=== PATIENT | male | born 1960 | race Caucasian/White ===

== ENCOUNTER 2021-12-19 12:18 | Outpatient (REF) | payer OTHER, SELFPAY ==
--- NOTE | ~2021-12-19 | MM_ITS ---
EXAMINATION: MM DIAGNOSTIC DIGITAL BREAST TOMOSYNTHESIS, BILATERAL US DIAGNOSTIC BREAST/SOFT TISSUE, RIGHT CLINICAL INFORMATION: 61-year-old male with small palpable area noted right posterior lateral back, likely chronic 1-2 years. No prior breast imaging. No known family history breast cancer. COMPARISON: None (current study represents initial baseline exam). TECHNIQUE: Digital breast tomosynthesis is performed in both the craniocaudal and mediolateral oblique views along with computer-aided detection (CAD). Synthesized 2D images are generated from the tomosynthesis. Ultrasound posterior lateral back and chest wall soft tissues is targeted to the site of clinical concern. Patient is able to point to area of concern at time of imaging. Grayscale imaging and color Doppler are performed without and with harmonics. FINDINGS: Mammography: The breasts are almost entirely fatty (ACR BI-RADS breast composition Category a). Background stromal markings appearing normal. There is no mass or architectural abnormality or abnormal calcifications. No adenopathy or abnormality skin contours. No skin thickening. Ultrasound: Ultrasound targeted to the site of clinical concern right posterior lateral back, beyond the right breast and right axilla, demonstrates a nonspecific spindle-shaped lesion in the subcutaneous space. Long axis is parallel with the skin. Overall dimensions are 0.4 cm thick, 1.5 cm across, and 1.8 cm in vertical dimension. There is an internal uniform fine septation. There is no surrounding edema. No skin thickening. No hyperemia. Management: Results are discussed with the patient at time of visit. The palpable area right posterior lateral back is nonspecific. The appearance and location is suggestive of a subcutaneous lipoma. This could be further characterized with CT or MRI if clinically indicated. Alternatively, this could be followed clinically and follow-up ultrasound performed as needed. Today's exam may serve as baseline for future ultrasound. MM/MM tomosynthesis diagnostic BI IMPRESSION: -Mammography unremarkable. No mammographic evidence of malignancy. -Ultrasound right posterior lateral chest wall demonstrate nonspecific spindle-shaped lesion within the subcutaneous space measuring 0.4 cm thickness by approximately 1.5 x 1.8 cm. Finding statistically is most likely a lipoma. ASSESSMENT: BI-RADS 3: Probably Benign RECOMMENDATION: 1. Breast imaging is unremarkable. No additional follow-up recommended. 2. Subcutaneous lesion right posterior lateral chest wall may be managed based on the clinical impression. See discussion above.
== END 2021-12-19 12:19 | disposition home or self-care (01) ==
LOC: HO.MAMMO 12:18
PROVIDERS: PCP Nurse Practitioner Family; Visit Provider Nurse Practitioner Family
DX: R22.9 Localized swelling, mass and lump, unspecified (principal)
CPT/HCPCS: 76642; 77062; 77066